=== PATIENT | female | born 1970 | race American Indian/Alaskan Native ===

== ENCOUNTER 2018-09-18 10:47 | Emergency (ER) | payer SELFPAY ==
[2018-09-18 10:56] VITALS: BP 143/87
[2018-09-18] MEDS ORDERED: TESSALON PERLES PO ONE (13:24)
--- NOTE | 2018-09-18 14:01 | XRay Report ---
ROUTINE CHEST, TWO VIEWS: HISTORY: Cough for a week. The trachea, heart, mediastinal contour, lung buckner and bony thorax are unremarkable. IMPRESSION: Unremarkable chest x-ray.
--- NOTE | 2018-09-18 14:09 | Emergency Department Report ---
Minor Respiratory - HPI Chief Complaint: Upper Respiratory Infection Stated Complaint: COUGH/SORE THROAT Time Seen by Provider: 09/18/18 13:20 Duration: 1 week Minor Respiratory: Yes Rhinorrhea, Yes Able to Tolerate Fluids, Yes Cough, Yes Sick Contacts (works in a [place]), No Sore Throat, No Ear Pain, No Hemoptysis, No Chest Pain, No Shortness of Breath, No Fever Other History: 47-year-old -[place] female presents to the emergency room for cough 1 week. Patient has taken nothing for the cough. She reports he gets worse at night. She denies any fever chills no nausea no vomiting no chest pain. She does report that she works in a [place] [facility]. ED Review of Systems ROS: Stated complaint: COUGH/SORE THROAT Other details as noted in HPI Comment: All other systems reviewed and negative Respiratory: cough ED Past Medical Hx - Past Medical History Previous Medical History?: No - Surgical History Past Surgical History?: No - Social History Smoking Status: Never Smoker Substance Use Type: Alcohol - Medications Home Medications: Home Medications Medication Instructions Recorded Confirmed Last Taken Type Benzonatate [Tessalon Perles] 100 mg PO Q8HR #15 capsule 09/18/18 Unknown Rx Cetirizine HCl [ZyrTEC 10mg rapdis] 10 mg PO QDAY #15 tab.rapdis 09/18/18 U nknown Rx Minor Respiratory Exam - Exam General: Vital signs noted. No distress. Alert and acting appropriately. HEENT: Yes Moist Mucous Membranes, No Pharyngeal Erythema, No Pharyngeal Exudates, No Rhinorrhea, No Conjuctival Injection, No Frontal Tenderness, No Maxillary Tenderness Neck: Yes Supple, No Adenopathy Lungs: Yes Good Air Exchange, No Wheezes, No Ronchi, No Stridor, No Cough, No Labored Respirations, No Retractions, No Use of Accessory Muscles, No Other Abnormal Lung Sounds Heart: Yes Regular, No Murmur Neurologic: Alert and oriented, no deficits. Musculoskeletal: Unremarkable. ED Course Vital Signs 09/18/18 10:54 Temperature 98.1 F Pulse Rate 78 Respiratory 17 Rate Blood Pressure 143/87 O2 Sat by Pulse 99 Oximetry ED Medical Decision Making - Radiology Data Radiology results: report reviewed Patient: MAUDE MITCHELL MR#: [id number] : 1970 Acct:[id number] Age/Sex: 47 / F ADM Date: 09/18/18 Loc: ED Attending Dr: Ordering Physician: MARYCARMEN NELSON Date of Service: 09/18/18 Procedure(s): XR chest routine 2V Accession Number(s): [id number] cc: MARYCARMEN NELSON Fluoro Time In Minutes: ROUTINE CHEST, TWO VIEWS: HISTORY: Cough for a week. The trachea, heart, mediastinal contour, lung buckner and bony thorax are unremarkable. IMPRESSION: Unremarkable chest x-ray. Transcribed By: TTR Dictated By: MARCK MOTA JR, MD Electronically Authenticated By: MARCK MOTA JR, MD Signed Date/Time: 09/18/18 7300 - Medical Decision Making 47-year-old female comes in for cough for one week. Chest x-ray shows unremarkable. Patient has no fever. Patient was given a Tessalon Perle Y in [facility]. Patient be discharged home on Tessalon Perles and Zyrtec's. Patient is to follow-up with her primary care provider per symptoms persist or gets worse. - Differential Diagnosis hospital-acquired pneumonia, bronchitis, asthma Critical care attestation.: If time is entered above; I have spent that time in minutes in the direct care of this critically ill patient, excluding procedure time. ED Disposition Clinical Impression: Cough Disposition: DC-01 TO HOME OR SELFCARE Is pt being admited?: No Does the pt Need Aspirin: No Condition: Stable Instructions: Antihistamine/Antitussive (By mouth) Additional Instructions: She is take medications as prescribed. Increase her fluid intake while taking antihistamines. Follow up with her primary care provider if his symptoms persist or gets worse. Prescriptions: Benzonatate [Tessalon Perles] 100 mg PO Q8HR #15 capsule Cetirizine HCl [ZyrTEC 10mg rapdis] 10 mg PO QDAY #15 tab.rapdis Referrals: CARMELINA MATHEWS MD [Primary Care Provider] - 3-5 Days Forms: Work/School Release Form(ED)
== END 2018-09-18 14:21 | disposition home or self-care (01) ==
LOC: ED 10:47
DX: R05 Cough (principal)
CPT/HCPCS: 71046; 99283